=== PATIENT | male | born 1990 | race Two or more races ===

== ENCOUNTER 2020-02-29 20:09 | Emergency (ER) | payer SELFPAY ==
--- NOTE | 2020-02-29 20:52 | ER Document Report ---
HPI - HPI Patient complains to provider of: Dog bite Time Seen by Provider: 02/29/20 20:42 Pain Level: 1 Context: This 29-year-old male who was breaking up his dog from fighting with another dog and the tooth grazed his finger was matured by it was truly a grazing but he does have a puncture wound to the dorsal aspect of his index finger midline between the MCP and the PIP Associated Symptoms: None Exacerbated by: Denies Similar symptoms previously: No Past Medical History - General Information source: Patient - Social History Smoking Status: Never Smoker Chew tobacco use (# tins/day): No Frequency of alcohol use: None Drug Abuse: None Family History: None Vertical Provider Document - CONSTITUTIONAL Agree With Documented VS: Yes - INFECTION CONTROL TRAVEL OUTSIDE OF THE [place] IN LAST 30 DAYS: Yes - HEENT HEENT: Atraumatic, Conjuctival Injection, Normocephalic, PERRLA - NECK Neck: Normal Inspection - RESPIRATORY Respiratory: Breath Sounds Normal, No Respiratory Distress - CARDIOVASCULAR Cardiovascular: Regular Rate, Regular Rhythm - GI/ABDOMEN Gastrointestinal: Abdomen Soft, Abdomen Non-Tender - REPRODUCTIVE Male Genitalia: Normal Inspection - BACK Back: Normal Inspection - MUSCULOSKELETAL/EXTREMETIES Musculoskeletal/Extremeties: MAEW - NEURO Level of Consciousness: Awake, Alert - DERM Integumentary: Warm Notes: Patient has a 1-1/2 cm laceration to the dorsal aspect of his right index finger between the MCP and the PIP midshaft he also has an abrasion to the dorsal aspect of the hand proximal to the third MCP it is an abrasion Course - Vital Signs Vital signs: Temp Pulse Resp BP Pulse Ox 97.6 F 88 18 118/77 98 02/29/20 20:36 02/29/20 20:24 02/29/20 20:24 02/29/20 20:24 02/29/20 20:24 Procedures - Laceration/Wound Repair Right Dorsal Hand 2nd digit Wound length (cm): 2 Wound's Depth, Shape: Superficial Anesthetic type: Other - Lidocaine was offered patient was advised to take 2 shots of lidocaine or 1 staple he opted to the staple without the lidocaine. Wound explored: Clean Wound Debrided: Moderate Wound Repaired With: Carina Post-procedure wound care: Sterile dressing applied Post-procedure NV exam normal: Yes Complications: No Discharge - Discharge Clinical Impression: Dog bite Qualifiers: Encounter type: initial encounter Qualified Code(s): W54.0XXA - Bitten by dog, initial encounter Condition: Good Disposition: HOME, SELF-CARE Instructions: Animal Bites ([facility]) Prescriptions: Amoxicillin/Potassium Clav [Augmentin 875-125 Tablet] 1 tab PO Q12 #20 tablet Ibuprofen [Motrin 600 Mg Tablet] 600 mg PO TID #15 tablet Referrals: LOCALMD,NO [NO LOCAL MD] - Follow up as needed
[2020-02-29 21:31] VITALS: BP 112/71
== END 2020-02-29 21:32 | disposition home or self-care (01) ==
LOC: ER 20:09
DX: S61.250A Open bite of right index finger without damage to nail, initial encounter (principal); S60.571A Other superficial bite of hand of right hand, initial encounter; W54.0XXA Bitten by dog, initial encounter; Y93.K9 Activity, other involving animal care
CPT/HCPCS: 99283